=== PATIENT | male | born 1960 | race Caucasian/White ===

== ENCOUNTER 2020-01-30 07:29 | Outpatient (REF) | payer OTHER, SELFPAY ==
[2020-01-30 11:25] LABS: Hematocrit 47.1 % (42-52); Hemoglobin 15.2 g/dl (14.0-18.0); Mean Corpuscular HGB Conc 32.3 g/dl (31.0-36.0); Mean Corpuscular Hemoglobin 28.8 pg (27.0-33.0); Mean Corpuscular Volume 89.2 fL (80-98); Mean Platelet Volume 11.1 fL (9.4-12.4); Platelet Count 177 X10*3/uL (160-400); Red Blood Count 5.28 X10*6/uL (4.60-5.80); Red Cell Distribution Width 12.7 % (11.0-16.0); White Blood Count 6.6 X10*3/uL (4.8-10.8)
[2020-01-30 11:46] LABS: Alanine Aminotransferase 34 U/L (0-40); Albumin Level 3.9 g/dL (3.5-5.0); Alkaline Phosphatase 91 U/L (39-117); Anion Gap 13 (12-20); Aspartate Amino Transferase 21 U/L (5-37); Bilirubin Total 0.5 mg/dL (0.0-1.0); Blood Urea Nitrogen 13 mg/dL (9-16); Calcium 8.5 mg/dL (8.4-10.2); Carbon Dioxide 27 mmol/L (22-29); Chloride 103 mmol/L (96-108); Cholesterol 141 mg/dL; Estimated Glomerular Filt Rate > 60; Glucose Fasting 96 mg/dL (60-99); HDL Cholesterol 37 mg/dL; LDL Cholesterol Calculated 82 mg/dl; Potassium 4.6 mmol/l (3.3-5.1); Sodium 138 mmol/L (135-145); Total Protein 6.2 g/dL (6.5-8.0); Triglycerides 113 mg/dL
[2020-01-30 12:09] LABS: Prostate Specific Antigen 1.27 ng/mL (<0.05-4.0)
== END 2020-01-30 07:30 | disposition home or self-care (01) ==
LOC: HO.MANLDS 07:29
PROVIDERS: PCP Internal Medicine; Visit Provider Internal Medicine
DX: E78.00 Pure hypercholesterolemia, unspecified (principal)
CPT/HCPCS: 36415; 80053; 80061; 84153; 85027

== ENCOUNTER 2020-08-22 09:47 | Outpatient (REF) | payer OTHER, SELFPAY ==
[2020-08-22 11:25] LABS: Alanine Aminotransferase 22 U/L (0-40); Albumin Level 4.2 g/dL (3.5-5.0); Alkaline Phosphatase 96 U/L (39-117); Anion Gap 13 (12-20); Aspartate Amino Transferase 20 U/L (5-37); Bilirubin Total 1.1 mg/dL (0.0-1.0); Blood Urea Nitrogen 14 mg/dL (9-16); Calcium 9.4 mg/dL (8.4-10.2); Carbon Dioxide 26 mmol/L (22-29); Chloride 108 mmol/L (96-108); Cholesterol 141 mg/dL; Estimated Glomerular Filt Rate > 60; Glucose Fasting 102 mg/dL (60-99); HDL Cholesterol 38 mg/dL; LDL Cholesterol Calculated 81 mg/dl; Potassium 4.5 mmol/L (3.3-5.1); Sodium 142 mmol/L (135-145); Total Protein 6.7 g/dL (6.5-8.0); Triglycerides 111 mg/dL
[2020-08-22 11:46] LABS: Prostate Specific Antigen 0.98 ng/mL (<0.05-4.0)
== END 2020-08-22 09:48 | disposition home or self-care (01) ==
LOC: HO.MANLDS 09:47
PROVIDERS: PCP Internal Medicine; Visit Provider Internal Medicine
DX: E78.00 Pure hypercholesterolemia, unspecified (principal)
CPT/HCPCS: 36415; 80053; 80061; 84153

== ENCOUNTER 2022-02-24 10:03 | Outpatient (REF) | payer OTHER, SELFPAY ==
[2022-02-24 11:18] LABS: MANUAL DIFF FLAG NO
[2022-02-24 11:20] LABS: Basophils Percent Auto 0.4 % (0-2); Eosinophils Absolute Auto 0.2 X10*3/uL (0.0-0.4); Eosinophils Percent Auto 2.4 % (0-4); Hematocrit 48.4 % (42.0-52.0); Hemoglobin 16.1 g/dl (14.0-18.0); Imm Gran Abs Auto 0.02 X10*3/uL (0.00-0.03); Imm Gran Pct Auto 0.3 % (0.0-0.4); Lymphocytes Absolute Auto 2.4 X10*3/uL (1.2-4.9); Lymphocytes Percent Auto 35.7 % (20-40); Mean Corpuscular HGB Conc 33.3 g/dl (31.0-36.0); Mean Corpuscular Hemoglobin 29.4 pg (27.0-33.0); Mean Corpuscular Volume 88.5 fL (80.0-98.0); Mean Platelet Volume 10.7 fL (9.4-12.4); Monocytes Absolute Auto 0.6 X10*3/uL (0.1-1.2); Neutrophils Absolute Auto 3.5 x10*3/uL (2.0-8.3); Neutrophils Percent Auto 52.2 % (45-73); Platelet Count 193 X10*3/uL (160-400); Red Blood Count 5.47 X10*6/uL (4.60-5.80); Red Cell Distribution Width 12.7 % (11.0-16.0); White Blood Count 6.8 X10*3/uL (4.8-10.8)
[2022-02-24 12:12] LABS: Alanine Aminotransferase 23 U/L (0-40); Albumin Level 4.3 g/dL (3.5-5.0); Alkaline Phosphatase 91 U/L (39-117); Anion Gap 12 (12-20); Aspartate Amino Transferase 20 U/L (5-37); Bilirubin Total 0.9 mg/dL (0.0-1.0); Blood Urea Nitrogen 20 mg/dL (9-16); Calcium 9.6 mg/dL (8.4-10.2); Carbon Dioxide 29 mmol/L (22-29); Chloride 104 mmol/L (96-108); Cholesterol 156 mg/dL; Estimated Glomerular Filt Rate > 60; Glucose Random 102 mg/dL (60-115); HDL Cholesterol 40 mg/dL; LDL Cholesterol Calculated 93 mg/dl; Potassium 4.7 mmol/L (3.3-5.1); Prostate Specific Antigen 1.17 ng/mL (<0.05-4.0); Sodium 140 mmol/L (135-145); Total Protein 6.8 g/dL (6.5-8.0); Triglycerides 117 mg/dL; Vitamin D 25-OH Total 23.2 ng/mL (>30)
== END 2022-02-24 10:04 | disposition home or self-care (01) ==
LOC: HO.MANLDS 10:03
PROVIDERS: Visit Provider Internal Medicine
DX: Z00.00 Encounter for general adult medical examination without abnormal findings (principal); Z12.5 Encounter for screening for malignant neoplasm of prostate
CPT/HCPCS: 36415; 80053; 80061; 82306; 84153; 85025

== ENCOUNTER 2022-10-11 11:04 | Outpatient (REF) | payer OTHER, SELFPAY ==
[2022-10-11 13:49] LABS: MANUAL DIFF FLAG NO
[2022-10-11 14:05] LABS: Basophils Percent Auto 0.6 % (0-2); Eosinophils Absolute Auto 0.2 X10*3/uL (0.0-0.4); Eosinophils Percent Auto 2.9 % (0-4); Hematocrit 49.2 % (42.0-52.0); Hemoglobin 16.5 g/dl (14.0-18.0); Imm Gran Abs Auto 0.02 X10*3/uL (0.00-0.03); Imm Gran Pct Auto 0.3 % (0.0-0.4); Lymphocytes Absolute Auto 2.3 X10*3/uL (1.2-4.9); Lymphocytes Percent Auto 32.2 % (20-40); Mean Corpuscular HGB Conc 33.5 g/dl (31.0-36.0); Mean Corpuscular Hemoglobin 29.8 pg (27.0-33.0); Mean Platelet Volume 10.8 fL (9.4-12.4); Monocytes Absolute Auto 0.6 X10*3/uL (0.1-1.2); Monocytes Percent Auto 8.2 % (2-11); Neutrophils Percent Auto 55.8 % (45-73); Platelet Count 196 X10*3/uL (160-400); Red Blood Count 5.53 X10*6/uL (4.60-5.80); Red Cell Distribution Width 12.5 % (11.0-16.0); White Blood Count 7.2 X10*3/uL (4.8-10.8)
[2022-10-11 14:46] LABS: Alanine Aminotransferase 29 U/L (0-40); Albumin Level 4.2 g/dL (3.5-5.0); Alkaline Phosphatase 83 U/L (39-117); Anion Gap 13 (12-20); Aspartate Amino Transferase 23 U/L (5-37); Blood Urea Nitrogen 13 mg/dL (9-16); Calcium 9.6 mg/dL (8.4-10.2); Carbon Dioxide 26 mmol/L (22-29); Chloride 107 mmol/L (96-108); Cholesterol 147 mg/dL; Estimated Glomerular Filt Rate > 60; Glucose Random 103 mg/dL (60-115); HDL Cholesterol 37 mg/dL; LDL Cholesterol Calculated 72 mg/dl; Potassium 4.6 mmol/L (3.3-5.1); Sodium 141 mmol/L (135-145); Total Protein 7.2 g/dL (6.5-8.0); Triglycerides 190 mg/dL
[2022-10-11 15:18] LABS: Prostate Specific Antigen 1.23 ng/mL (<0.05-4.0)
== END 2022-10-11 11:05 | disposition home or self-care (01) ==
LOC: HO.MANLDS 11:04
PROVIDERS: Visit Provider Internal Medicine
DX: E78.00 Pure hypercholesterolemia, unspecified (principal); Z12.5 Encounter for screening for malignant neoplasm of prostate
CPT/HCPCS: 36415; 80053; 80061; 84153; 85025

== ENCOUNTER 2023-08-16 14:22 | Outpatient (REF) | payer MEDICARE, OTHER, SELFPAY ==
[2023-08-16 18:02] LABS: MANUAL DIFF FLAG NO
[2023-08-16 18:26] LABS: Basophils Percent Auto 0.5 % (0-2); Eosinophils Absolute Auto 0.2 X10*3/uL (0.0-0.4); Eosinophils Percent Auto 2.7 % (0-4); Hematocrit 48.1 % (42.0-52.0); Hemoglobin 16.3 g/dl (14.0-18.0); Imm Gran Abs Auto 0.02 X10*3/uL (0.00-0.03); Imm Gran Pct Auto 0.3 % (0.0-0.4); Lymphocytes Absolute Auto 2.5 X10*3/uL (1.2-4.9); Lymphocytes Percent Auto 33.7 % (20-40); Mean Corpuscular HGB Conc 33.9 g/dl (31.0-36.0); Mean Corpuscular Hemoglobin 30.2 pg (27.0-33.0); Mean Corpuscular Volume 89.1 fL (80.0-98.0); Mean Platelet Volume 11.4 fL (9.4-12.4); Monocytes Absolute Auto 0.7 X10*3/uL (0.1-1.2); Monocytes Percent Auto 8.9 % (2-11); Neutrophils Absolute Auto 3.9 x10*3/uL (2.0-8.3); Neutrophils Percent Auto 53.9 % (45-73); Platelet Count 201 X10*3/uL (160-400); Red Cell Distribution Width 12.9 % (11.0-16.0); White Blood Count 7.3 X10*3/uL (4.8-10.8)
[2023-08-16 19:01] LABS: Alanine Aminotransferase 25 U/L (0-40); Albumin Level 4.3 g/dL (3.5-5.0); Alkaline Phosphatase 91 U/L (39-117); Anion Gap 14 (12-20); Aspartate Amino Transferase 21 U/L (5-37); Bilirubin Total 0.8 mg/dL (0.0-1.0); Blood Urea Nitrogen 14 mg/dL (9-16); Calcium 9.8 mg/dL (8.4-10.2); Carbon Dioxide 24 mmol/L (22-29); Chloride 104 mmol/L (96-108); Cholesterol 155 mg/dL (<200); Estimated Glomerular Filt Rate > 60; Glucose Random 88 mg/dL (60-115); HDL Cholesterol 38 mg/dL (>40); LDL Cholesterol Calculated 91 mg/dL (<100); Potassium 4.2 mmol/L (3.3-5.1); Sodium 138 mmol/L (135-145); Total Protein 7.2 g/dL (6.5-8.0); Triglycerides 131 mg/dL (<150)
[2023-08-16 19:11] LABS: Prostate Specific Antigen 1.79 ng/mL (<0.05-4.0)
== END 2023-08-16 14:23 | disposition home or self-care (01) ==
LOC: HO.MANLDS 14:22
PROVIDERS: Visit Provider Internal Medicine
DX: Z12.5 Encounter for screening for malignant neoplasm of prostate (principal); E78.00 Pure hypercholesterolemia, unspecified
CPT/HCPCS: 36415; 80053; 80061; 82306; 84153; 85025

== ENCOUNTER 2023-09-06 16:06 | Outpatient (REF) | payer MEDICARE, OTHER, SELFPAY ==
[2023-09-06 18:15] LABS: Appearance Urine Cloudy; Color Urine Yellow; Glucose Urine UA Negative (Negative); Leukocyte Esterase Urine Negative (Negative); Nitrite Urine Negative (Negative); PH 5.5 (5.0-9.0); UMIC TRIGGER UACC YES; Urine Blood Large (3+) (Negative); Urine Ketones Negative (Negative); Urine Protein 300 (3+) mg/dL (Neg-Trace)
[2023-09-06 19:57] LABS: Bacteria Urine None Seen (None Seen); Hyaline Casts Urine 0-2 /LPF (0-2); RBC Urine >20 /HPF (0-2); WBC Urine 0-5 /HPF (0-5)
== END 2023-09-06 16:07 | disposition home or self-care (01) ==
LOC: HO.MANLDS 16:06
PROVIDERS: Visit Provider Internal Medicine
DX: N39.0 Urinary tract infection, site not specified (principal)
CPT/HCPCS: 81001

== ENCOUNTER 2023-10-21 12:16 | Outpatient (REF) | payer MEDICARE, OTHER, SELFPAY ==
[2023-10-21 13:06] LABS: Appearance Urine Clear; Color Urine Yellow; Glucose Urine UA Negative (Negative); Leukocyte Esterase Urine Negative (Negative); Nitrite Urine Negative (Negative); PH 5.5 (5.0-9.0); Specific Gravity - Urine 1.025 (1.005-1.025); Urine Blood Negative (Negative); Urine Ketones Negative (Negative); Urine Protein Negative (Neg-Trace)
== END 2023-10-21 12:17 | disposition home or self-care (01) ==
LOC: HO.LAB 12:16
PROVIDERS: PCP Internal Medicine; Visit Provider Physician Assistant
DX: R31.0 Gross hematuria (principal)
CPT/HCPCS: 81003

== ENCOUNTER 2025-01-28 10:16 | Outpatient (REF) | payer MEDICARE, OTHER, SELFPAY ==
--- OUTSIDE RECORDS SUMMARY | 2025-01-28 12:38 | XMS_ITS | Clinical Summary ---
Author Organization [facility] [place] [address] Care Team Providers Care Ict Development Manager Name Role Phone Unavailable Primary Care Provider Unavailabl e Social History Tobacco Use Types Packs/Day Years Used Date Smoking Tobacco: Never Assessed Sex and Gender Information Value Date Recorded Sex Assigned at Not on file Legal Sex Male 3:15 AM EST Gender Identity Not on file Sexual Orientation Not on file Plan of Treatment Health Maintenance Due Date Last Done Comments Colorectal Cancer Screening: Colonoscopy 1958 DTaP,Tdap,and Td Vaccines (1 - Tdap) 1977 Pneumococcal Vaccine: 50+ Years (1 of 1 - PCV) 02/06/2008 Zoster Vaccines (1 of 2) 02/06/2008 Abdominal Aortic Aneurysm (AAA) Screen 12/22/2023 Cholesterol Screening (Lipid Panel) 12/22/2023 Falls Risk Assessment 12/22/2023 Hepatitis C Screening 12/22/2023 Social Influencers of Health Screening 12/22/2023 Depression Screening 03/07/2024 COVID-19 Vaccine (3 - 2024-2 6 season) 2024 06/10/2020, 05/20/2020 Influenza Vaccine (#1) 2024 RSV Immunization Adult Patients (1 - 1-dose 75+ series) 2033 HIB Vaccines Aged Out No longer eligi ble based on patient's age to complete this topic HPV Vaccines Aged Out No longer eligi ble based on patient's age to complete this topic Hepatitis A Vaccines Aged Out No long er eligible based on patient's age to complete this topic Hepatitis B Vaccines Aged Out No long er eligible based on patient's age to complete this topic IPV Vaccines Aged Out No longer eligi ble based on patient's age to complete this topic MMR Vaccines Aged Out No longer eligi ble based on patient's age to complete this topic Meningococcal ACWY Vaccine Aged Out N o longer eligible based on patient's age to complete this topic Meningococcal B Vaccine Aged Out No l onger eligible based on patient's age to complete this topic RSV Immunization Patients Under 20 months Aged Out No longer eligible b ased on patient's age to complete this topic Varicella Vaccines Aged Out No longer eligible based on patient's age to complete this topic
--- OUTSIDE RECORDS SUMMARY | 2025-01-28 12:38 | XMS_ITS | Data Portability ---
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 MUST MEET 2 OUT OF 3 ELEMENTS: PROBLEMS, DATA OR RISK ELEMENT 1: PROBLEMS ADDRESSED 1 OR MORE CHRONIC ILLNESS WITH EXACERBATION OR 2 OR MORE STABLE CHRONIC ILLNESSES OR 1 UNDIAGNOSED NEW PROBLEM OR 1 ACUTE ILLNESS W/SYMPTOMS OR 1 ACUTE COMPLICATED INJURY ELEMENT 2: DATA MUST MEET 1 OF 3 CATEGORIES CATEGORY 1: REVIEW OF PRIOR EXTERNAL NOTES, REVIEW OF RESULTS, ORDERING OF EACH TEST, ASSESSMENT REQUIRING INDEPENDENT HISTORIAN OR CATEGORY 2: INDEPENDENT INTERPRETATION OF TESTS BY ANOTHER PHYSICIAN OR SPECIALIST OR CATEGORY 3: DISCUSSION OF MGT OR TEST INTERPRETATION W/EXTERNAL PHYSICIAN OR SPECIALIST ELEMENT 3: RISK RISK OF COMPLICATIONS AND/OR MORBIDITY OR MORTALITY OF PATIENT MANAGEMENT PROVIDER MUST THOROUGHLY DOCUMENT EACH ELEMENT THAT IS COVERED Not available 10/27/2022 14:55:09 07/20/2024 07/20/2024 [id number] [place] [id number]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 REVIEW OF PRIOR EXTERNAL NOTES/RESULTS, ORDERING OF TEST(S) CATEGORY 2. 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 MUST MEET 2 OUT OF 3 ELEMENTS: PROBLEMS, DATA OR RISK ELEMENT 1: PROBLEMS ADDRESSED 1 OR MORE CHRONIC ILLNESS WITH EXACERBATION OR 2 OR MORE STABLE CHRONIC ILLNESSES OR 1 UNDIAGNOSED NEW PROBLEM OR 1 ACUTE ILLNESS W/SYMPTOMS OR 1 ACUTE COMPLICATED INJURY ELEMENT 2: DATA MUST MEET 1 OF 3 CATEGORIES CATEGORY 1: REVIEW OF PRIOR EXTERNAL NOTES, REVIEW OF RESULTS, ORDERING OF EACH TEST, ASSESSMENT REQUIRING INDEPENDENT HISTORIAN OR CATEGORY 2: INDEPENDENT INTERPRETATION OF TESTS BY ANOTHER PHYSICIAN OR SPECIALIST OR CATEGORY 3: DISCUSSION OF MGT OR TEST INTERPRETATION W/EXTERNAL PHYSICIAN OR SPECIALIST ELEMENT 3: RISK RISK OF COMPLICATIONS AND/OR MORBIDITY OR MORTALITY OF PATIENT MANAGEMENT PROVIDER MUST THOROUGHLY DOCUMENT EACH ELEMENT THAT IS COVERED Not available 10/24/2024 14:31:16 Plan of Treatment Reminders Order Date Submit Date Provider Last Modified By Organization Details Last Modified Time Details Appointments MEDICARE ANNUAL WELLNESS 2024 11:30A M DR DON Not available Not available Not available Lab lipid panel, blood 2024 025 [facility], [address] [place] [address], [id number], 10/24/2024 14:25:33 CMP, serum or plasma 2024 025 [facility], [address] [place] [address], [place], [address], 10/24/2024 14:25:33 PSA, serum or plasma 2024 025 [facility], [address] [place] [address], [place], [address], 10/24/2024 14:25:33 CBC 2024 025 [facility], [address] [place] [address], [place], [address], 10/24/2024 14:25:33 lipid panel, blood 2024 025 [facility], [address] [place] [address], [address], 07/20/2024 10:34:36 CMP, serum or plasma 2024 025 [facility], [address] [place] [address], [id number], 07/20/2024 10:34:36 PSA, serum or plasma 2024 025 [facility], [address] [place] [address], [address], 07/20/2024 10:34:36 CBC w/ auto diff 2024 025 [facility], [address] [place] [address], [address], 07/20/2024 10:34:36 urinalysi s complete, reflex culture 2023 024 [facility], [address] [place] [address], [address], 09/07/2023 09:42:09 lipid panel, blood 2023 024 [facility], [address] [place] [address], [address], 08/16/2023 12:24:52 CMP, serum or plasma 2023 024 [facility], [address] [place] [address], [address], 08/17/2023 11:20:03 PSA, serum or plasma 2023 024 [facility], [address] [place] [address], [address], 08/16/2023 12:24:52 CBC 2023 024 [facility], [address] [facility], [place], [address], 08/16/2023 12:24:52 vitamin D, 25-hydrox y, total, serum 2023 024 [facility], [address] [place] [address], [place], [address], 08/16/2023 12:24:52 Referral None recorded. Procedures None recorded. Surgeries None recorded. Imaging US, abdominal aorta 2024 025 [facility], [address] [place], [address], 11/07/2024 11:19:04 CT, heart, w/o contrast, w/ coronary calcium score 2023 024 [facility], [address] [place], [address], 08/23/2023 09:04:11 CT, heart, w/o contrast, w/ coronary calcium score 2022 023 [facility], [address] [place], [address], 11/10/2022 08:20:21 Medication Orders diclofena c sodium 75 mg tablet,de layed release [address] [facility][id number], [address] [place], [address], 07/20/2024 10:33:15 sulfameth oxazole 800 mg-trimet hoprim [address] tablet [address] [facility] #[id number], [address] [place], [address], 10/25/2023 10:29:01 Zithromax Z-Dilip 250 mg tablet [address] [facility] #0084, [address] [place] [address], [address], 10/25/2023 10:31:54 terbinafi ne HCl 250 mg tablet 2023 024 [email or web address] [facility] [address] [place] [address], [address], 10/24/2024 14:13:45 desvenlaf axine succinate ER 50 mg tablet,ex tended release 24 hr 2023 024 [facility], [facility], [place], [address], 08/16/2023 12:14:10 atorvasta tin 10 mg tablet [email or web address] [facility], [facility], [place], [address], 08/16/2023 12:14:15 Lidocaine Viscous 2 % mucosal solution 2022 024 [facility] [address] [place], [address], 10/25/2023 10:27:53 desvenlaf axine succinate ER 50 mg tablet,ex tended release 24 hr 2022 023 [facility], [facility], [place], [address], 10/27/2022 14:59:48 atorvasta tin 10 mg tablet 2022 023 [facility], [facility], [place], [address], 10/27/2022 14:59:48 terbinafi ne HCl 250 mg tablet 2022 024 [email or web address] [facility], [address] [place], [address], 10/24/2024 14:13:45 Patient TargetsNo targets recorded. Patient InstructionsNo instructions recorded. Reason for Referral None Reported. Results Created Date Observation Date Name Description Value Unit Range Abnormal Flag Note LastModifiedBy Organization Detail LastModifiedTime 09/06/19 24 09/06/2023 CT, heart , w/o contr ast, w/ coron nikita calci um score No observ ation record ed. [email or web address] [facility] [address], [place], [address], 09/07/2023 09:37:28 09/17/19 24 09/17/2023 US, renal No observ ation record ed. [email or web address] [facility] [address], [place], [address], 09/19/2023 10:29:54 07/12/19 25 07/11/2024 XR, ribs, unila teral , 2 view No observ ation record ed. BARCODE Not Available 2024 11:12:05 07/12/19 25 07/11/2024 XR, thora cic spine , 2 view No observ ation record ed. BARCODE Not Available 2024 11:12:05 Result Notes None recorded. Problems Name Problem SNOMED Code Status Onset Date Resolution Date Notes Provider Name and Address Organization Details Recorded Time Hypertrig lyceridem ia 172124601 Active 2017 Not Available [facility] 3 08:53:02 Fracture of ankle 45586943 Active 2018 Not Available [facility] 3 08:53:02 Chronic depressio n 691106788 Active 2018 Not Available [facility] 3 08:53:02 Body mass index 30+ - obesity 317067585 Active 2018 Not Available [facility] 3 08:53:02 Hyperchol esterolem ia 39847714 Active 2018 Not Available [facility] 3 08:53:02 Onychomyc osis of toenails 117905835 Active 2020 Not Available [facility] 3 08:53:02 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 4 13:56:28 Jason hematuria 364654132 Active 2023 German Don DO [address] [place] [address], [address], [facility] 4 21:30:48 Dysuria 95913899 Active 2023 KACIE TALBERT [address] [place] [address], [address], [facility] 4 11:44:37 Acute prostatit is 43366875 Active 2023 KACIE TALBERT [address] [place] [address], [address], [facility] 4 10:23:29 Acute maxillary sinusitis 75427326 Active 2023 KACIE TALBERT [address] [place] [address], [address], [facility] 4 10:30:08 Anxiety 48915798 Active 2024 German Don DO [address] [place] [address], [address], [facility] 5 12:54:56 Right flank pain 917499086 Active 2024 German Don DO [address] [place] [address], [address], [facility] 5 10:32:06 Nocturia due to benign prostatic hypertrop hy 479417272590 1 Active 2024 German Don DO [address] [place] [address], [address], [facility] 5 14:29:28 Problem Notes None recorded. Procedures Surgical History Date Name Laterality Status Provider Name and Address Organization Details Recorded Time 0 Colonoscopy completed [facility] 07/26/2018 08:50:11 Tonsillectomy completed [facility] 07/26/2018 08:51:36 Imaging Results None recorded. Procedure Notes None recorded. Medical Equipment None Reported. Allergies No known drug allergies Medications Name Sig Start Date Stop Date Status Note LastModified by Organization Details LastModified Time amoxicillin 500 mg capsule TAKE 1 CAPSULE BY MOUTH 3 TIMES A DAY active Not Available Not Available No t Available prednisone 10 mg tablet TAKE , 4 TABLETS ONCE DAILY X5 DAYS, 2 TABS X5 DAYS, 1 TABS X5 DAYS, THEN STOP. 02/24 completed Not Available Not Available Not Available ketoconazol e 2 % shampoo PLEASE SEE ATTACHED FOR DETAILED DIRECTION S active Not Available Not Available No t Available sildenafil 50 mg tablet TAKE 1 TABLET BY MOUTH EVERY DAY FOR 30 DAYS active Not Available Not Available No t Available atorvastati n 10 mg tablet TAKE 1 TABLET DAILY 2024 active Not Available Not Available Not Avai lable azithromyci n 250 mg tablet TAKE 2 TABLETS BY MOUTH TODAY, THEN TAKE 1 TABLET DAILY FOR 4 DAYS DIRECTED active Not Available Not Available No t Available Lidocaine Viscous 2 % mucosal solution TAKE 15 ML BY MOUTH EVERY 3 HOURS X30 DAYS 10/24 completed Not Available Not Available Not Available prednisone 20 mg tablet PLEASE SEE ATTACHED FOR DETAILED DIRECTION S 02/24 completed Not Available Not Available Not Available ciprofloxac in 500 mg tablet TAKE 1 TABLET BY MOUTH EVERY 12 HOURS FOR 10 DAYS. 10/24 completed Not Available Not Available Not Available sulfamethox azole 800 mg-trimetho prim 160 mg tablet TAKE 1 TABLET BY MOUTH TWICE A DAY DIRECTED active Not Available Not Available No t Available ciclopirox 8 % topical solution APPLY TO THE AFFECTED AREA(S) BY TOPICAL ROUTE ONCE DAILY PREFERABL Y AT BEDTIME OR 8 HOURS BEFORE WASHING 06/10 completed Not Available Not Available Not Available oxycodone-a cetaminophe n 5 mg-325 mg tablet TAKE 1 TABLET BY MOUTH EVERY 6 HOURS NEEDED FOR PAIN 10/24 completed Not Available Not Available Not Available terbinafine HCl 250 mg tablet TAKE 1 TABLET BY MOUTH EVERY DAY FOR 90 DAYS, THEN DISCONTIN UE 10/24 completed Not Available Not Available Not Available lorazepam 0.5 mg tablet TAKE 1 TABLET BY MOUTH THREE TIMES A DAY NEEDED FOR 7 DAYS active Not Available Not Available No t Available tamsulosin 0.4 mg capsule TAKE 1 CAPSULE AT BEDTIME active Not Available Not Available No t Available diclofenac sodium 75 mg tablet,terry yed release Take 1 tablet twice a day by oral route for 30 days. 2024 active Not Available Not Available Not Avai lable mupirocin 2 % topical ointment APPLY TWICE DAILY TO SURGICAL SITE 7 14 DAYS 02/24 completed Not Available Not Available Not Available ketoconazol e 2 % topical cream APPLY TWICE DAILY TO OUTER EARS UNTIL CLEAR, AND NEEDED FOR RECURRENC ES active Not Available Not Available No t Available nabumetone 500 mg tablet TAKE 1 TABLET BY MOUTH WITH FOOD TWICE A DAY FOR 14 DAYS active Not Available Not Available No t Available desvenlafax ine succinate ER 50 mg tablet,exte nded release 24 hr TAKE 1 TABLET DAILY active Not Available Not Available No t Available desvenlafax ine ER 50 mg tablet,exte nded release 24 hr 1 PO QD 10/24 completed Not Available Not Available Not Available Fluarix Quad (PF) 60 mcg (15 mcg x 4)/0.5 mL IM syringe 02/05 completed Not Available Not Available Not Available Paxlovid 300 mg (150 mg x 2)-100 mg tablets in a dose pack TAKE 2 NIRMATREL VIR TABLETS AND 1 RITONAVIR TABLET TOGETHER BY MOUTH TWICE DAILY FOR 5 DAYS 08/15 completed Not Available Not Available Not Available Vitals Date Recorded Body height Body mass index (BMI) Body weight Heart rate Oxygen saturation Systolic And Diastolic Provider Name and Address Organization Details Last Updated DateTime 5 175.9 cm 35.8 kg/m2 534512. 54 g 89 /min 98 % 130/66 mm[Hg] [facility] 5 10:05:01 Date Recorded Body height Body mass index (BMI) Body weight Heart rate Oxygen saturation Systolic And Diastolic Provider Name and Address Organization Details Last Updated DateTime 4 175.9 cm 35.4 kg/m2 853624. 48 g 88 /min 95 % 124/86 mm[Hg] Denise Reveles [facility] 4 11:33:43 Date Recorded Body height Body mass index (BMI) Body weight Heart rate Oxygen saturation Systolic And Diastolic Provider Name and Address Organization Details Last Updated DateTime 4 175.9 cm 35.8 kg/m2 281875. 62 g 87 /min 97 % 124/82 mm[Hg] Denise Abdirizak [facility] 4 10:11:03 Date Recorded Body height Body mass index (BMI) Body weight Heart rate Oxygen saturation Systolic And Diastolic Provider Name and Address Organization Details Last Updated DateTime 5 175.9 cm 34.3 kg/m2 514379. 61 g 80 /min 97 % 110/76 mm[Hg] Georgia Patel [facility] 5 14:15:00 Date Recorded Body height Body mass index (BMI) Body weight Heart rate Oxygen saturation Systolic And Diastolic Provider Name and Address Organization Details Last Updated DateTime 3 175.9 cm 35 kg/m2 102414. 58 g 85 /min 96 % 110/80 mm[Hg] Georgia Patel [facility] 3 14:22:16 Social History Question Answer Notes LastModified by Organizat ion Details LastModified Time Tobacco Smoking Status [facility] 09:[facility]13 What Was The Date Of Your Most Recent Tobacco Screening? 10/24/2024 [email or web address] Information not available 10/24/2024 Sex: Unknown Functional Status Question Answer Note LastModified by Organization D etails LastModified Time Do you or have you ever used any other forms of tobacco or nicotine? No Information not available 10/27/2022 Mental Status None recorded. Family History Relationship Description Onset Age of this Age Resolved Age Notes LastModified by Organization Details LastModified Time Father Family history of malignant neoplasm [email or web address] Not available 2018 08:51:16 Mother Family history of malignant neoplasm [email or web address] Not available 2018 08:51:16 Medical History No medical history recorded. Immunizations Vaccine Type Date Status Note Provider Nam e and Address Organization Details Recorded Time zoster recombinant 2 completed Not Available [facility] 05/26/2022 07:00:07 COVID-19, mRNA, LNP-S, PF, 30 mcg/0.3 mL dose 1 completed Not Available [facility] 05/26/2022 07:00:08 COVID-19, mRNA, LNP-S, PF, 30 mcg/0.3 mL dose 2 completed Not Available [facility] 05/26/2022 07:00:08 zoster recombinant 1 completed Not Available [facility] 05/26/2022 07:00:07 influenza, unspecified formulation 2 completed Not Available [facility] 05/26/2022 07:00:08 influenza, unspecified formulation 3 completed Alex alberts [facility] 01/26/2023 10:38:32 SARS-COV-2 (COVID-19) vaccine, UNSPECIFIED 3 completed Alex alberts [facility] 02/25/2023 08:59:22 SARS-COV-2 (COVID-19) vaccine, UNSPECIFIED 4 completed Alex alberts [facility] 11/11/2023 07:17:30 Influenza, split virus, quadrivalent, preservative 0 completed Not Available [facility] 05/26/2022 07:00:07 COVID-19, mRNA, LNP-S, PF, 30 mcg/0.3 mL dose 1 completed Not Available [facility] 05/26/2022 07:00:07 COVID-19, mRNA, LNP-S, PF, 30 mcg/0.3 mL dose 1 completed Not Available [facility] 05/26/2022 07:00:08 Past Encounters Encounter ID Performer Location Encounter Start Date Encounter Closed Date Diagnosis/Indication Diagnosis SNOMED-CT Code Diagnosis ICD10 Code Diagnosis IMO Codes Diagnosis Note [id number] DO [facility] [address] [facility],[place] [address] 07/26/2018 14:28:10 07/26/2018 14:58:56 Fracture of ankle 81878090 S82.92XA improving Body mass index 30+ - obesity 980623176 Z68.35 healthy diet and exercise Blood pres sure above reference range 99122122 R03.0 mildly elevated lifestyle changes recheck at cpe Tobacco user 591214014 Z 72.0 rarely has a cigar Adult heal th examination 564728313 Z00.00 has cpe scheduled will order labs Onychomyco sis of toenails 447620413 B35.1 [id number] German Don [facility] [address] [facility],[place] [address] 12/05/2018 15:42:15 12/05/2018 16:30:41 Adult health examination 802431316 Z00.00 actuallly doing well but we have reviewed the results of his labwork is c/o his left ankle and had a tight feeling in it and relates will try doing walking to see if it loosens up he has onychomyco sis so we will treat with terbinafin e Active or passive immunization 819455717 Z23 Onychomyco sis of toenails 203349127 B35.1 Dysplastic nevus of skin 021146018 D22.9 [id number] German Don [facility] [address] [facility],[place] [address] 10/12/2019 09:57:42 10/12/2019 10:43:03 Hypercholesterolemia 53207413 E78.00 here for rechk and is doing ok but will need lab work done in dec will start him on low dose atorvastat in Chronic depression 82730 0009 F34.1 seems to be stable with desvenlafa xine Hypertriglyceridemia 302 744548 E78.1 reviewed lab in detail Onychomyco sis of toenails 494649923 B35.1 almost resolved Obstructiv e sleep apnea syndrome 58530941 G47.33 [id number] German Don [facility] [address] [facility],[place] [address] 02/06/2020 09:25:16 02/06/2020 10:06:25 Hypercholesterolemia 46805341 E78.00 LDL down to 83 from 157 !!!! doing much better and is well tolerated Sinus tachycardia 798564 01 R00.0 will cont to monitor [id number] German Don [facility] [address] [facility],[place] [address] 03/21/2020 09:08:56 03/21/2020 13:47:19 Acute urinary tract infection 625401856 N39.0 will start abx and monitor symptoms and if it improves infection or not Increased frequency of urination 045728332 R35.0 given symptoms and presentati on most likely an uncomplica eddie UTI will treat with appropriat e abx, hydration and hygiene practices Dysuria 05180648 R30.9 is using cranberry just which helps with the pain patient should continue with cranberry juice, one glass per day and hydrate to flush himself [id number] German Don [facility] [address] [facility],[place] [address] 08/29/2020 08:58:56 08/29/2020 09:50:42 Chronic depression 111611362 F34.1 seems to be stable with desvenlafa xine Hypercholesterolemia 136 36604 E78.00 LDL down to 83 from 157 !!!! doing much better and is well tolerated Onychomyco sis of toenails 411248799 B35.1 almost resolved Primary er ectile dysfunction 963794599 N52.9 Aphthous u lcer of mouth 607369566 K12.0 Screening for malignant neoplasm of colon 513557264 Z12.11 [id number] German Don [facility] [address] [facility],[place] [address] 02/24/2022 09:03:14 02/24/2022 14:42:34 Active or passive immunization 968567845 Z23 utd Adult heal th examination 183443374 Z00.00 doing well he is now doing a lot of traveland is not having any issues Aphthous u lcer of mouth 055666845 K12.0 [id number] German Don [facility] [address] [facility],[place] [address] 10/27/2022 14:05:54 10/27/2022 15:15:34 Hypercholesterolemia 61671265 E78.00 LDL down to 72 from 83 from 157 !!!!must get back on the biking that he has always donedoing much better and is well tolerated Hypertriglyceridemia 302 089908 E78.1 reviewed lab in detail noted LDL and HDL good Onychomyco sis of toenails 627616024 B35.1 almost resolved Aphthous u lcer of mouth 040498903 K12.0 Chronic depression 82079 0009 F34.1 seems to be stable with desvenlafa xine Eczema of external auditory canal 02192100 H60.549 will use otc hydrocorti sone [id number] German Don DO [facility] [address] [facility],[place] [address] 08/16/2023 11:09:18 08/16/2023 14:32:28 Active or passive immunization 335220746 Z23 utd Adult heal th examination 910545286 Z00.00 doing well he is now doing a lot of traveland is not having any issues Depression screening 171 597196 Z13.31 SCREENING NEGATIVE Acute urin nikita tract infection 946903577 N39.0 Hypercholesterolemia 136 83087 E78.00 LDL down to 72 from 83 from 157 !!!!must get back on the biking that he has always donedoing much better and is well tolerated Chronic depression 47900 0009 F34.1 seems to be stable with desvenlafa xine [id number] German Don DO [facility] [address] [facility] [address],[place] [address] 10/25/2023 10:04:23 10/25/2023 10:40:50 Acute prostatitis 75070132 N41.0 will need prior to his trip to [place] (just in case) Onychomyco sis of toenails 300518617 B35.1 needs refill Acute maxi llary sinusitis 51031802 J01.01 will give z dilip to take with him in case he has an infection, common when he travels [id number] German Don [facility] [address] [facility] [address],[place] [address] 07/20/2024 09:57:04 07/20/2024 11:07:44 Hypercholesterolemia 22437537 E78.00 LDL down to 72 from 83 from 157 !!!!must get back on the biking that he has always donedoing much better and is well tolerated Depression screening 171 903090 Z13.31 SCREENING NEGATIVE Right flank pain 4960835 09 R10.9 6618598 [id number] German Don, [facility] [address] [facility],[place] [facility] [address] 10/24/2024 14:05:31 10/24/2024 14:38:15 Depression screening 195681056 Z13.31 SCREENING NEGATIVE Hypercholesterolemia 136 16542 E78.00 needs new lab LDL down to 72 from 83 from 157 !!!!must get back on the biking that he has always donedoing much better and is well tolerated Nocturia d ue to benign prostatic hypertrophy [id number] N40.1 R35.1 [id number] chk psa Abdominal aortic aneurysm screening [id number] Z13.6 [id number] Health Concerns Section Related Observation LastModified by Organization Detai ls LastModified Time None Recorded Concern Status LastModified by Organization Details LastModified Time None Recorded Advance Directives Directive None Recorded Payers Insurance Date Sequence Insurance Name Policy Number Policy Fletcher Covered Member ID Fletcher Member ID Guarantor Name 12/22/2024 1 [place] [employer] Jorge Mackey [id number] Jorge Mackey 10/24/2024 2 [facility] PHCS (PPO) [id number] Jorge Mackey [id number] Jorge Mackey 12/05/2018 1 [facility] GIC INDEMNITY PLAN (INDEMNITY) [id number] Rubi Mackey [id number] Jorge Mackey 12/05/2018 1 [facility] ([facility] [id number] Rubi Mackey [id number] Jorge Mackey Notes Date Note Type Note Provider Name and Address Organization Details Recorded Time 10/28/19 23 text/htm l ROS as noted in the HPI here for rechk aand is doing okoverall doing fineno cp no sobreviewed lab in detail cholest and cmp all doing greatnote had dental work for sub tooth infections these were taken care of and he no longer is having sinus issues German Don, DO [address] [facility], [place], [address], [facility] 10/27/2022 15:06:33 08/16/19 24 text/htm l Annual WellnessReported by PatientSocial/Behavioral HistoryFor diet and nutrition, patient reportshealthy diet. For fracture risk, patient reportsno history of fractures,no recent explained fracture,no sudden unexplained fractures, andno previous musculoskeletal injuries. For physical activity, patient reportsexercises on a regular basis,recent increase in physical activity, andgood physical condition. For additional lifestyle factors, patient reportsno tobacco use,no alcohol intake, andstopped drinking alcohol.Mental Status:For depression risk, patient reportsnever feels sad, empty, or tearful,no loss of interest in activities,no significant changes in weight,no sleep disturbances or insomnia,no agitation,no loss of energy,no feelings of worthlessness or guilt,no thoughts of suicide,no history of depression, andno history of mood disorders.Functional AbilityFor hearing, patient reportsno loss of hearing. For vision, patient reportsno vision problems.ROS as noted in the HPI German Don, DO [address] [place], [address], [facility] 08/16/2023 12:18:43 10/25/19 24 text/htm l ROS as noted in the HPI c/o enlarged prostate the patient reports that he has a urine culture last Tuesdayit was negative at this time, compared to last time it has been much betterthe patient reports that he is still having issues with his prostate, with incomplete urinary emptying > triggered by bike riding, could be the compression on the prostate the patient was treated twice for prostatitisthe patient had complete resolution with the bactrimcipro was not as effective for the patient the patient reports that he has a f/u with urology on 11/09/23will have him hold any abx prior to, given some to take with him to [place] needs z-dilip for possible sinus infection while away in [place] has R hand pain, probably arthritis, suggested diclofenac gel KACIE TALBERT [address] [place], [address], [facility] 10/25/2023 10:38:50 07/21/19 25 text/htm l Care Management - HyperlipidemiaReported by PatientHPIFor control, patient reportsusually well controlled,improving, andat goal. For complications, patient reportsno coronary artery disease,no heart attack,no cardiovascular disease,no pancreatitis, andno stroke. Musculoskeletal PainReported by PatientHPIFor location, patient reportspain is not radiating. For severity, patient reportsimproving. For associated symptoms, patient reportsno fever,no weak limbs,no tingling,no numbness of the legs/feet, andno incontinence. For adl (activities of daily living), patient reportsimprove with medication.ROS as noted in the HPI here for reight shoulder pain from heavy lifting for several months ( with pancreatic who passed several weeks ago)relates very sore et but pain islocated in lower right thoracic cage and upper renal area German Don DO [address] [place], [address], [facility] 07/20/2024 10:36:19 10/25/19 25 text/htm l ROS as noted in the HPI here for recchkand is doing ok no major issues German Don DO [address] [place], [address], [facility] 10/24/2024 16:18:59
[2025-01-28 13:03] LABS: MANUAL DIFF FLAG NO
[2025-01-28 13:13] LABS: Hematocrit 46.2 % (42.0-52.0); Hemoglobin 15.5 g/dl (14.0-18.0); Imm Gran Abs Auto 0.03 X10*3/uL (0.00-0.03); Imm Gran Pct Auto 0.4 % (0.0-0.4); Lymphocytes Absolute Auto 2.2 X10*3/uL (1.2-4.9); Mean Corpuscular HGB Conc 33.5 g/dl (31.0-36.0); Mean Corpuscular Hemoglobin 29.9 pg (27.0-33.0); Mean Corpuscular Volume 89.0 fL (80.0-98.0); NRBC Abs Auto 0.000 X10*3/uL (0.0-0.012); NRBC Pct Auto 0.0 /100WBC (0.0-0.2); Platelet Count 171 X10*3/uL (160-400); Red Blood Count 5.19 X10*6/uL (4.60-5.80); White Blood Count 6.7 X10*3/uL (4.8-10.8)
[2025-01-28 14:38] LABS: Prostate Specific Antigen 1.95 ng/mL (<0.05-4.0)
[2025-01-28 16:54] LABS: Alanine Aminotransferase 23 U/L (0-40); Albumin Level 4.3 g/dL (3.5-5.0); Alkaline Phosphatase 93 U/L (39-117); Anion Gap 10 (12-20); Aspartate Amino Transferase 28 U/L (5-37); Blood Urea Nitrogen 15 mg/dL (9-16); Calcium 9.2 mg/dL (8.4-10.2); Carbon Dioxide 27 mmol/L (22-29); Chloride 106 mmol/L (96-108); Cholesterol 135 mg/dL (<200); Estimated Glomerular Filt Rate > 60; HDL Cholesterol 41 mg/dL (>40); Potassium 4.3 mmol/L (3.3-5.1); Sodium 139 mmol/L (135-145); Total Protein 6.9 g/dL (6.5-8.0); Triglycerides 107 mg/dL (<150)
== END 2025-01-28 10:17 | disposition home or self-care (01) ==
LOC: HO.MANLDS 10:16
PROVIDERS: Visit Provider Internal Medicine
DX: Z12.5 Encounter for screening for malignant neoplasm of prostate (principal); E78.00 Pure hypercholesterolemia, unspecified
CPT/HCPCS: 36415; 80053; 80061; 84153; 85025